=== PATIENT | female | born 1955 | race Caucasian/White ===

== ENCOUNTER 2021-08-11 07:10 | Day surgery (SDC) | payer MEDICAID, SELFPAY ==
[~2021-08-11] VITALS: Ht 154.9 cm; Wt 51.7 kg
[2021-08-11] MEDS ORDERED: MEPERIDINE 100 MG INJ. 100 MG/ML VIAL ONE (07:37)
[2021-08-11] MEDS ORDERED: MIDAZOLAM HCL 5 MG/5 ML VIAL ONE (07:38)
[2021-08-11 14:27] VITALS: BP_SYST 91
== END 2021-08-11 12:04 | disposition home or self-care (01) ==
LOC: SDS 07:10 → SMU 07:11 → SDS 12:04
PROVIDERS: ATTEND Internal Medicine Gastroenterology
DX: Z12.11 Encounter for screening for malignant neoplasm of colon (principal); K62.1 Rectal polyp; K57.30 Diverticulosis of large intestine without perforation or abscess without bleeding; Z86.010 Personal history of colon polyps; K64.8 Other hemorrhoids; Z20.822 Contact with and (suspected) exposure to COVID-19; Z79.899 Other long term (current) drug therapy
CPT/HCPCS: 36415; 45380; 87426; 88305; 99152; 99153; G0378; J2175; J2250; U0003